=== PATIENT | female | born 1975 | race Two or more races ===

== ENCOUNTER 2022-09-16 18:46 | Inpatient (IN) | payer MEDICAID, OTHER ==
[~2022-09-16] VITALS: Ht 167.6 cm; Wt 84.0 kg
[2022-09-16 19:32] LABS: Basophils # (auto) 0 10 ^3/uL (0-0.2); Basophils % (auto) 0.7 % (0.0-2.0); Eosinophils # (auto) 0.2 10 ^3/uL (0-0.8); Eosinophils % (auto) 3.3 % (0.0-7.0); Hematocrit 38.2 % (36.0-46.0); Hemoglobin 12.7 g/dL (12.2-16.2); Lymphocytes # (auto) 2.1 10 ^3/uL (0.4-5.4); Lymphocytes % (auto) 33.2 % (10.0-50.0); Mean Corpuscular Hemoglobin 27.3 pg (28.0-32.0); Mean Corpuscular Hgb Conc. 33.3 g/dL (32.0-36.0); Mean Corpuscular Volume 82.1 fL (80.0-100.0); Monocytes # (auto) 0.3 10 ^3/uL (0-1.3); Monocytes % (auto) 5.2 % (0.0-12.0); Neutrophils # (auto) 3.7 10 ^3/uL (1.6-8.6); Neutrophils % (auto) 57.6 % (37.0-80.0); Red Blood Cells 4.65 10^6/uL (4.0-5.20); White Blood Cell 6.5 10^3/uL (4.4-10.8)
[2022-09-16 19:50] LABS: Calcium 7.9 mg/dL (8.5-10.1); Magnesium 2.3 mg/dL (1.6-2.6); Potassium 3.9 mmol/L (3.5-5.1)
[2022-09-16 19:53] LABS: BUN/Creatinine Ratio 20.6 (10.0-20.0); Bilirubin, Total 0.2 mg/dL (0.2-1.0); Total Protein 6.2 g/dL (6.4-8.2)
[2022-09-16] MEDS ORDERED: LIDOCAINE VISCOUS 2% 15ML UD PO ONE (20:00)
[2022-09-16] MEDS ORDERED: MAALOX PLUS or MAALOX 30 ML PO ONE (20:00)
[2022-09-16] MEDS ORDERED: ACETAMINOPHEN 325 MG TAB PO PRN ×2 (20:30→21:30)
[2022-09-16] MEDS ORDERED: HEPARIN SODIUM (PORCINE) 5000 UNITS/ML 1ML VIAL IV ONE (20:30)
[2022-09-16] MEDS ORDERED: ASPirin 81 mg TAB PO ONE (20:30)
[2022-09-16] MEDS ORDERED: SODIUM CHLORIDE 0.9% 1,000 ML IV ONE (21:00)
[2022-09-16 21:06] LABS: Urine Bacteria FEW /hpf (None Seen); Urine Blood Negative /uL (Negative); Urine Mucus FEW (None Seen); Urine Specific Gravity 1.028 (1.001-1.035); Urine WBC 13 /hpf (0 - 5)
[2022-09-16 21:18] LABS: Cholesterol 187 mg/dL (< 200); Triglycerides 233 mg/dL (< 150)
[2022-09-16 21:20] LABS: HDL Cholesterol 43 mg/dL (40-59); LDL Cholesterol 125 mg/dL (< 100)
[2022-09-16] MEDS ORDERED: DOCUSATE SOD 100 MG CAP PO PRN (21:30)
[2022-09-16] MEDS ORDERED: LORazepam 0.5 MG TAB PO PRN (21:30)
[2022-09-16] MEDS ORDERED: ZOLPIDEM TARTRATE 5 MG TAB PO PRN (21:30)
[2022-09-16] MEDS ORDERED: NITROGLYCERIN 0.4 MG SL TAB SL PRN (21:30)
[2022-09-16] MEDS ORDERED: MORPHINE SULFATE INJ 2 MG/ml SYRG IV PRN (21:30)
[2022-09-16] MEDS ORDERED: MAALOX PLUS or MAALOX 30 ML PO PRN (21:30)
[2022-09-16] MEDS: SODIUM CHLOR 0.9% PF (SALINE LOCK) 10ML VIAL/SYR IV SCH (22:00)
[2022-09-16] MEDS: ENOXAPARIN SOD 60 MG/0.6 ML SYRINGE SC SCH (23:31)
[2022-09-16] MEDS: ATORVASTATIN 20 MG TAB PO SCH (23:32)
[2022-09-16 23:46] LABS: Alcohol, Urine < 3.0 mg/dL (0-10); Barbiturate Scree,Urine NEGATIVE (NEGATIVE); Benzodiazephine Screen, Urine NEGATIVE (NEGATIVE); Cannabinoid Screen, Urine NEGATIVE (NEGATIVE); Cocaine Screen, Urine NEGATIVE (NEGATIVE); Opiate Scree,Urine NEGATIVE (NEGATIVE); Phencyclidine Screen, Urine NEGATIVE (NEGATIVE)
[2022-09-16 23:49] LABS: Amphetamine Screen, Urine POSITIVE (NEGATIVE)
[2022-09-17 05:38] LABS: Cholesterol 168 mg/dL (< 200); Triglycerides 163 mg/dL (< 150)
[2022-09-17 05:40] LABS: HDL Cholesterol 37 mg/dL (40-59); LDL Cholesterol 110 mg/dL (< 100)
[2022-09-17] MEDS: SODIUM CHLOR 0.9% PF (SALINE LOCK) 10ML VIAL/SYR IV SCH ×3 (06:22→22:29)
[2022-09-17 09:59] LABS: Basophils # (auto) 0 10 ^3/uL (0-0.2); Basophils % (auto) 0.5 % (0.0-2.0); Eosinophils # (auto) 0.2 10 ^3/uL (0-0.8); Eosinophils % (auto) 3.3 % (0.0-7.0); Hemoglobin 12.5 g/dL (12.2-16.2); Lymphocytes # (auto) 2.6 10 ^3/uL (0.4-5.4); Lymphocytes % (auto) 39.3 % (10.0-50.0); Mean Corpuscular Hemoglobin 27.3 pg (28.0-32.0); Mean Corpuscular Volume 82.8 fL (80.0-100.0); Monocytes # (auto) 0.5 10 ^3/uL (0-1.3); Monocytes % (auto) 6.8 % (0.0-12.0); Neutrophils # (auto) 3.3 10 ^3/uL (1.6-8.6); Neutrophils % (auto) 50.1 % (37.0-80.0); Nucleated Red Blood Cells % 0.2 %; Red Blood Cells 4.58 10^6/uL (4.0-5.20); Red Cell Distribution Width 14.8 % (11.8-14.3); White Blood Cell 6.6 10^3/uL (4.4-10.8)
[2022-09-17] MEDS: METOPROLOL TARTRATE 25 MG TAB PO SCH (10:00)
[2022-09-17] MEDS: LISINOPRIL 5 MG TAB PO SCH (10:00)
[2022-09-17 10:18] LABS: BUN/Creatinine Ratio 27.8 (10.0-20.0); Calcium 7.8 mg/dL (8.5-10.1); Magnesium 2.5 mg/dL (1.6-2.6); Potassium 4.2 mmol/L (3.5-5.1)
[2022-09-17] MEDS: ASPirin-EC 81 mg tab PO SCH (10:20)
[2022-09-17] MEDS: ENOXAPARIN SOD 60 MG/0.6 ML SYRINGE SC SCH ×2 (10:20→22:30)
[2022-09-17] MEDS: PANTOPRAZOLE 40 MG TAB PO SCH (10:20)
[2022-09-17 12:34] LABS: INR 0.92 (0.9-1.15); Partial Thromboplastin Time 28.1 sec (24.6-33.4)
[2022-09-17 22:20] VITALS: BP_SYST 116; BP_DIAS 68; BP_DIAS 88
[2022-09-17] MEDS: ATORVASTATIN 20 MG TAB PO SCH (22:30)
[2022-09-18] MEDS: SOD CHL 0.45% 1,000 ML IV SCH ×3 (01:31→20:45)
[2022-09-18] MEDS: ZOLPIDEM TARTRATE 5 MG TAB PO PRN ×2 (01:31→22:03)
[2022-09-18 05:00] VITALS: BP 102/44
[2022-09-18 05:22] LABS: Albumin 2.8 g/dL (3.4-5.0); Potassium 4.3 mmol/L (3.5-5.1)
[2022-09-18 05:25] LABS: BUN/Creatinine Ratio 23.7 (10.0-20.0); Bilirubin, Total 0.2 mg/dL (0.2-1.0); Total Protein 5.4 g/dL (6.4-8.2)
[2022-09-18] MEDS: SODIUM CHLOR 0.9% PF (SALINE LOCK) 10ML VIAL/SYR IV SCH ×3 (06:25→22:03)
[2022-09-18 09:00] VITALS: BP 102/46
[2022-09-18] MEDS: PANTOPRAZOLE 40 MG TAB PO SCH (10:00)
[2022-09-18] MEDS: ASPirin-EC 81 mg tab PO SCH (10:00)
[2022-09-18] MEDS ORDERED: ASPirin 81 mg TAB PO SCH (10:00)
[2022-09-18] MEDS: METOPROLOL TARTRATE 25 MG TAB PO SCH (10:00)
[2022-09-18] MEDS: LISINOPRIL 5 MG TAB PO SCH (10:00)
[2022-09-18] MEDS: ENOXAPARIN SOD 60 MG/0.6 ML SYRINGE SC SCH ×2 (10:00→22:03)
[2022-09-18 13:00] VITALS: BP 94/59
[2022-09-18 22:00] VITALS: BP 107/50
[2022-09-18] MEDS: ATORVASTATIN 20 MG TAB PO SCH (22:03)
[2022-09-19 05:00] VITALS: BP 100/48
[2022-09-19 05:25] LABS: Basophils # (auto) 0.1 10 ^3/uL (0-0.2); Basophils % (auto) 0.8 % (0.0-2.0); Eosinophils # (auto) 0.2 10 ^3/uL (0-0.8); Eosinophils % (auto) 2.9 % (0.0-7.0); Hematocrit 37.6 % (36.0-46.0); Hemoglobin 12.7 g/dL (12.2-16.2); Lymphocytes # (auto) 2.3 10 ^3/uL (0.4-5.4); Lymphocytes % (auto) 34.2 % (10.0-50.0); Mean Corpuscular Hemoglobin 27.5 pg (28.0-32.0); Mean Corpuscular Hgb Conc. 33.7 g/dL (32.0-36.0); Mean Corpuscular Volume 81.6 fL (80.0-100.0); Monocytes # (auto) 0.5 10 ^3/uL (0-1.3); Monocytes % (auto) 7.6 % (0.0-12.0); Neutrophils # (auto) 3.6 10 ^3/uL (1.6-8.6); Neutrophils % (auto) 54.5 % (37.0-80.0); Nucleated Red Blood Cells % 0.2 %; Red Blood Cells 4.61 10^6/uL (4.0-5.20); Red Cell Distribution Width 14.8 % (11.8-14.3); White Blood Cell 6.6 10^3/uL (4.4-10.8)
[2022-09-19 05:44] LABS: Albumin 2.8 g/dL (3.4-5.0); Calcium 7.9 mg/dL (8.5-10.1); Potassium 4.2 mmol/L (3.5-5.1)
[2022-09-19 05:48] LABS: BUN/Creatinine Ratio 27.9 (10.0-20.0); Bilirubin, Total 0.3 mg/dL (0.2-1.0); Total Protein 5.9 g/dL (6.4-8.2)
[2022-09-19] MEDS: SOD CHL 0.45% 1,000 ML IV SCH ×3 (06:27→22:18)
[2022-09-19] MEDS: SODIUM CHLOR 0.9% PF (SALINE LOCK) 10ML VIAL/SYR IV SCH ×3 (06:27→21:52)
[2022-09-19 08:59] VITALS: BP 90/41
[2022-09-19] MEDS: LISINOPRIL 5 MG TAB PO SCH (10:00)
[2022-09-19] MEDS: METOPROLOL TARTRATE 25 MG TAB PO SCH (10:00)
[2022-09-19] MEDS: ASPirin-EC 81 mg tab PO SCH (10:20)
[2022-09-19] MEDS: PANTOPRAZOLE 40 MG TAB PO SCH (10:20)
[2022-09-19] MEDS: ENOXAPARIN SOD 60 MG/0.6 ML SYRINGE SC SCH ×2 (10:33→21:52)
[2022-09-19] MEDS: ZOLPIDEM TARTRATE 5 MG TAB PO PRN ×2 (10:35→21:52)
[2022-09-19 12:50] VITALS: BP 111/60
[2022-09-19 17:00] VITALS: BP 91/48
[2022-09-19] MEDS: ATORVASTATIN 20 MG TAB PO SCH (21:52)
[2022-09-19 22:00] VITALS: BP 111/43
[2022-09-20] MEDS: SOD CHL 0.45% 1,000 ML IV SCH ×2 (04:54→15:11)
[2022-09-20 05:00] VITALS: BP 88/56
[2022-09-20] MEDS: SODIUM CHLOR 0.9% PF (SALINE LOCK) 10ML VIAL/SYR IV SCH ×3 (05:40→21:59)
[2022-09-20 06:07] LABS: Albumin 3.1 g/dL (3.4-5.0); Calcium 8.4 mg/dL (8.5-10.1); Potassium 4.4 mmol/L (3.5-5.1)
[2022-09-20 06:11] LABS: BUN/Creatinine Ratio 22.2 (10.0-20.0); Bilirubin, Total 0.3 mg/dL (0.2-1.0); Total Protein 6.2 g/dL (6.4-8.2)
[2022-09-20 09:00] VITALS: BP 92/45
[2022-09-20] MEDS: ENOXAPARIN SOD 60 MG/0.6 ML SYRINGE SC SCH ×2 (10:00→21:59)
[2022-09-20] MEDS: PANTOPRAZOLE 40 MG TAB PO SCH (11:17)
[2022-09-20] MEDS: METOPROLOL TARTRATE 25 MG TAB PO SCH (11:17)
[2022-09-20] MEDS: ASPirin-EC 81 mg tab PO SCH (11:17)
[2022-09-20] MEDS: LISINOPRIL 5 MG TAB PO SCH (11:19)
[2022-09-20 12:51] VITALS: BP 101/71
[2022-09-20 16:58] VITALS: BP 102/52
[2022-09-20] MEDS: ATORVASTATIN 20 MG TAB PO SCH (21:59)
[2022-09-20] MEDS: ZOLPIDEM TARTRATE 5 MG TAB PO PRN (21:59)
[2022-09-20 22:00] VITALS: BP 101/43
[2022-09-21 05:00] VITALS: BP 90/63
[2022-09-21 06:09] LABS: Albumin 2.9 g/dL (3.4-5.0); Calcium 7.7 mg/dL (8.5-10.1)
[2022-09-21] MEDS: SODIUM CHLOR 0.9% PF (SALINE LOCK) 10ML VIAL/SYR IV SCH ×2 (06:09→14:12)
[2022-09-21 06:15] LABS: BUN/Creatinine Ratio 22.5 (10.0-20.0); Bilirubin, Total 0.3 mg/dL (0.2-1.0); Total Protein 5.8 g/dL (6.4-8.2)
[2022-09-21 06:22] LABS: Basophils # (auto) 0.1 10 ^3/uL (0-0.2); Basophils % (auto) 0.8 % (0.0-2.0); Eosinophils # (auto) 0.3 10 ^3/uL (0-0.8); Eosinophils % (auto) 3.7 % (0.0-7.0); Hematocrit 34.9 % (36.0-46.0); Hemoglobin 11.9 g/dL (12.2-16.2); Lymphocytes # (auto) 2.1 10 ^3/uL (0.4-5.4); Lymphocytes % (auto) 30.3 % (10.0-50.0); Mean Corpuscular Hemoglobin 27.9 pg (28.0-32.0); Mean Corpuscular Volume 81.9 fL (80.0-100.0); Monocytes # (auto) 0.5 10 ^3/uL (0-1.3); Monocytes % (auto) 7.6 % (0.0-12.0); Neutrophils % (auto) 57.6 % (37.0-80.0); Red Blood Cells 4.26 10^6/uL (4.0-5.20); Red Cell Distribution Width 14.6 % (11.8-14.3); White Blood Cell 6.9 10^3/uL (4.4-10.8)
[2022-09-21 09:00] VITALS: BP 90/43
[2022-09-21] MEDS: METOPROLOL TARTRATE 25 MG TAB PO SCH (10:00)
[2022-09-21] MEDS: LISINOPRIL 5 MG TAB PO SCH (10:00)
[2022-09-21] MEDS: ENOXAPARIN SOD 60 MG/0.6 ML SYRINGE SC SCH (10:30)
[2022-09-21] MEDS: PANTOPRAZOLE 40 MG TAB PO SCH (10:30)
[2022-09-21] MEDS: ASPirin-EC 81 mg tab PO SCH (10:33)
[2022-09-21 13:00] VITALS: BP 101/46
[2022-09-21 17:00] VITALS: BP 113/70
[2022-09-21] MEDS ORDERED: DOCU-265 PO (17:06)
[2022-09-21] MEDS ORDERED: LISI-275 PO (17:06)
[2022-09-21] MEDS ORDERED: NITR0.4S29 SL (17:06)
[2022-09-21] MEDS ORDERED: MET25T PO (17:06)
[2022-09-21] MEDS ORDERED: ASPI-543 PO (17:06)
[2022-09-21] MEDS ORDERED: PANT40T PO (17:06)
[2022-09-21] MEDS ORDERED: ATOR20TA50 PO (17:06)
[2022-09-21] MEDS ORDERED: LORA-1121 PO (17:06)
[2022-09-21 17:40] VITALS: BP 113/70
== END 2022-09-21 18:22 | disposition home or self-care (01) | DRG 190 ==
LOC: ER 18:51 → TELE 22:09 → TELE-CENTR 09-17 21:43
PROVIDERS: ADMIT Internal Medicine Infectious Disease; ATTEND Internal Medicine Infectious Disease
DX: I21.4 Non-ST elevation (NSTEMI) myocardial infarction (principal); E86.1 Hypovolemia; E87.8 Other disorders of electrolyte and fluid balance, not elsewhere classified; E66.09 Other obesity due to excess calories; J44.9 Chronic obstructive pulmonary disease, unspecified; F15.10 Other stimulant abuse, uncomplicated; K21.9 Gastro-esophageal reflux disease without esophagitis; Z87.891 Personal history of nicotine dependence; Z90.711 Acquired absence of uterus with remaining cervical stump; Z68.29 Body mass index [BMI] 29.0-29.9, adult
CPT/HCPCS: 36415; 71045; 80048; 80053; 80061; 80307; 81001; 83036; 83735; 83880; 84484; 84702; 85025; 85610; 85730; 86850; 86900; 86901; 87081; 93005; 93306; 96361; 96374; G0378